=== PATIENT | female | born 1950 | race Caucasian/White ===

== ENCOUNTER 2023-01-13 12:40 | Emergency (ER) | payer MEDICARE, OTHER ==
[~2023-01-13] VITALS: Ht 167.6 cm; Wt 70.0 kg
[~2023-01-13 12:40] MED LIST: ACET-2708 PO; AMLO10TA80 PO; ATOR20TA65 PO; BUSP10TA4 PO; HYDR25TA PO; LISI40TA13 PO; MECL-299 PO; MIRT45TA83 PO; TRAM50TA3 PO; TRAZ150T78 PO
[2023-01-13 12:44] VITALS: O2SAT 99
[2023-01-13] MEDS ORDERED: KETOROLAC 30MG/ML VIAL IM ONE (15:00)
[2023-01-13] MEDS ORDERED: ACETAMINOPHEN 325MG TABLET PO ONE (15:00)
[2023-01-13] MEDS ORDERED: MORPHINE SULFATE 4 MG/ML CPJ (NOT FOR IM USE) IV ONE (15:30)
[2023-01-13 16:10] LABS: HEMOGLOBIN. 13.8 g/dL (12.0-16.0); MEAN CORPUSCULAR HEMOGLOBIN 29.6 pg (28.0-32.0); MEAN CORPUSCULAR HGB CONC 34.5 g/dL (31.0-37.0); MEAN CORPUSCULAR VOLUME 85.7 fL (81.0-99.0); PLATELET 219 x1000/uL (130-400); RED BLOOD CELL COUNT 4.67 mill/uL (4.2-5.4); RED CELL DISTRIBUTION WIDTH 14.7 % (11.6-14.6); WHITE BLOOD COUNT 14.2 x1000/uL (4.5-11.0)
[2023-01-13 16:12] LABS: DIFFERENTIAL COMMENT 1
[2023-01-13 16:14] LABS: CHLORIDE 102 mEq/L (98-107); INDEX HEMOLYSI 1 (1-3); INDEX ICTERIC 1 (1-4); INDEX LIPEMIC 1 (1-3); POTASSIUM 3.5 mEq/L (3.5-5.1); SODIUM 133 mEq/L (136-145)
[2023-01-13 16:21] LABS: ALANINE AMINOTRANSFERASE 44 IU/L (13-61); ALBUMIN 3.8 g/dL (3.4-5.0); ASPARTATE AMINOTRANSFERASE 38 IU/L (15-37); BILIRUBIN TOTAL 0.8 mg/dL (0.1-1.0); CALCIUM 9.4 mg/dL (8.5-10.1); CARBON DIOXIDE 24 mEq/L (21-32); CREATININE 0.7 mg/dL (0.6-1.3); GLUCOSE 105 mg/dL (70-105); PROTEIN TOTAL 7.1 g/dL (6.0-8.3); UREA NITROGEN BLOOD 15 mg/dL (7-21)
[2023-01-13 17:34] VITALS: BP 148/90; PULSE 88; RESP 16; TEMP 98.5
[2023-01-13 19:55] LABS: PLATELET ESTIMATE NORMAL
[2023-01-13 19:56] LABS: ANISOCYTOSIS 1+; OVALOCYTES 1+
== END 2023-01-13 17:55 | disposition short-term general hospital (02) ==
LOC: ER 13:28
DX: S32.591A Other specified fracture of right pubis, initial encounter for closed fracture (principal); F41.9 Anxiety disorder, unspecified; I10 Essential (primary) hypertension; Z79.899 Other long term (current) drug therapy; W18.39XA Other fall on same level, initial encounter; Y93.89 Activity, other specified; Y92.89 Other specified places as the place of occurrence of the external cause; Y99.8 Other external cause status
CPT/HCPCS: 99285; 72131; 96374; 80053; 85025; 36415; 72192; J2270